=== PATIENT | male | born 1985 | race Hispanic/Latino ===

== ENCOUNTER 2018-10-02 08:51 | Emergency (ER) | payer OTHER | END 2018-10-02 09:44 | disposition home or self-care (01) | LOC: EDH 08:51 | DX: S02.2XXA Fracture of nasal bones, initial encounter for closed fracture (principal); Z87.891 Personal history of nicotine dependence; W51.XXXA Accidental striking against or bumped into by another person, initial encounter; Y93.67 Activity, basketball; Y92.89 Other specified places as the place of occurrence of the external cause; Y99.8 Other external cause status | CPT/HCPCS: 70160 ==